=== PATIENT | female | born 1960 | race Caucasian/White ===

== ENCOUNTER 2016-08-05 01:34 | Emergency (ER) | payer MEDICAID ==
[~2016-08-05] VITALS: Ht 154.9 cm; Wt 100.0 kg
[~2016-08-05 01:34] MED LIST: ACET1TAB12 PO; BUME1TAB30 PO; DIGO125T PO; FURO40 PO; METO50 PO; WARF7.5 PO
[2016-08-05 04:12] VITALS: BP 124/84
== END 2016-08-05 04:17 | disposition home or self-care (01) ==
LOC: EMS 01:35
DX: S00.511A Abrasion of lip, initial encounter (principal); K64.9 Unspecified hemorrhoids; K59.00 Constipation, unspecified; I48.91 Unspecified atrial fibrillation; K13.0 Diseases of lips; I50.9 Heart failure, unspecified; I11.0 Hypertensive heart disease with heart failure; Z95.0 Presence of cardiac pacemaker; Z95.1 Presence of aortocoronary bypass graft; X58.XXXA Exposure to other specified factors, initial encounter; Y93.89 Activity, other specified; Y92.89 Other specified places as the place of occurrence of the external cause; Y99.8 Other external cause status
CPT/HCPCS: 99283